=== PATIENT | female | born 1940 | race Caucasian/White ===

== ENCOUNTER 2017-04-22 09:18 | Day surgery (SDC) | payer MEDICARE, BC ==
[2017-04-21 09:30] VITALS: BMI 21.1
[~2017-04-22 09:18] MED LIST: LACTATED RINGERS 1,000 ML IV SCH
[2017-04-22 10:20] VITALS: TEMP 97.5
[2017-04-22] MEDS ORDERED: LIDOCAINE 1% 20 ML VIAL (10MG/ML) FOR IV START INTRADERMA ONE (10:28)
[2017-04-22] MEDS ORDERED: ONDANSETRON 4 MG/2 ML VIAL IVP ONE (10:33)
[2017-04-22] MEDS ORDERED: PROPOFOL 10 MG/ML 20 ML VIAL IV ONE (10:53)
--- NOTE | 2017-04-22 11:04 | P.PCN ---
Date of Procedure: 04/22/17 Procedure(s) Performed: BRIEF HISTORY: Patient is a 76-year-old, pleasant, female, scheduled for an upper endoscopy as a part of evaluation of epigastric pain for the last several months duration. She was treated with proton pump inhibitors with no help. Recently she was started on Carafate 1 g 4 times daily but developed severe constipation.. She was noted to have positive serology for H. pylori and was treated with antibiotics for 2 weeks. The symptoms continue to progressively get worse and hence she is scheduled for an upper endoscopy to evaluate further. Recent CT of the abdomen and pelvis showed thickening in the pyloric area. PROCEDURE PERFORMED: Esophagogastroduodenoscopy with biopsy. PREOPERATIVE DIAGNOSIS: Persistent epigastric pain. IV sedation per anesthesia. PROCEDURE: After informed consent was obtained, the patient was brought into the endoscopy unit. IV sedation was administered by Anesthesia under continuous monitoring. Initially the Olympus GIF-140 video endoscope was inserted into the mouth. Esophagus intubated without any difficulty. It was gradually advanced into the stomach and duodenum and carefully examined. The bulb and the second part of the duodenum appeared normal. The scope at this time was withdrawn to the stomach, adequately insufflated with air, and upon careful examination, mucosa of the antrum, had patchy areas of erythema and biopsies were done from this area. The body, cardia and the fundus appeared normal. The scope was then withdrawn into the esophagus. Small sliding Hiatal hernia noted. The GE junction was located at 39 cm from the incisors. The esophagus appeared normal. There were no erosions or ulcerations seen, biopsies were done from the distal esophagus and the patient tolerated the procedure well. IMPRESSION: 1. Minimal antral gastritis. 2. Small sliding Hiatal hernia. RECOMMENDATIONS: The findings of this examination were discussed with the patient as well as a family. She was advised to follow with the biopsy results. She can stop the Carafate because of constipation. She will continue with MiraLAX on a daily basis. She will be seen in office in 2-3 weeks.
[2017-04-22 11:29] VITALS: RESP 18
[2017-04-22 11:32] VITALS: BP 133/68; PULSE 78
== END 2017-04-22 11:41 | disposition home or self-care (01) ==
LOC: ORWHC2ENDO 09:18
PROVIDERS: ATTEND Internal Medicine Gastroenterology
DX: K29.50 Unspecified chronic gastritis without bleeding (principal); K44.9 Diaphragmatic hernia without obstruction or gangrene; T47.1X5A Adverse effect of other antacids and anti-gastric-secretion drugs, initial encounter; K59.00 Constipation, unspecified; K21.0 Gastro-esophageal reflux disease with esophagitis; Z87.891 Personal history of nicotine dependence; Z79.899 Other long term (current) drug therapy; Z90.49 Acquired absence of other specified parts of digestive tract; Z86.19 Personal history of other infectious and parasitic diseases
CPT/HCPCS: 88305; 43239; J2405; J2704

== ENCOUNTER → 2017-05-26 | Outpatient (CLI) | payer MEDICARE, BC ==
--- NOTE | 2017-05-26 15:39 | NM ---
EXAMINATION TYPE: NM hepatobiliary w CCK DATE OF EXAM: 05/26/2017 COMPARISON: NONE HISTORY: Chronic cholecystitis and biliary dyskinesia per order. Epigastric pain with diminished appe tite and nausea per patient. TECHNIQUE: After the intravenous administration of 5.2 mCi Tc 99m Mebrofenin hepatobiliary scintigrap hy is performed. Immediate images post injection. FINDINGS: There is satisfactory initial accumulation of tracer by the liver. The gallbladder is visualized wit hin 20 minutes. The small bowel activity is noted within 50 minutes. At one hour CCK was administer ed, patient was injected with 0.9 mcg of Kinevac, and gallbladder ejection fraction is calculated at 8 %, diminished from the normal range. Therefore there is no scintigraphic evidence of cystic or common bile duct obstruction to suggest acute cholecystitis. Diminished ejection fraction is consiste nt with chronic cholecystitis or gallbladder dyskinesia. IMPRESSION: Ejection fraction is 8%, diminished from the normal range, scintigraphic are consistent w ith gallbladder dyskinesia.
== END | disposition home or self-care (01) ==
LOC: RADNMMAIN 12:58
PROVIDERS: ATTEND Surgery
DX: K82.8 Other specified diseases of gallbladder (principal)
CPT/HCPCS: 78227; A9537; J2805

== ENCOUNTER 2017-06-08 06:44 | Day surgery (SDC) | payer MEDICARE, BC ==
[2017-06-03 14:34] VITALS: BMI 19.6
[~2017-06-08 06:44] MED LIST changes: +DEXAMETHASONE SOD PHOSPHATE 10 MG/ML 1 ML VIAL IV ONE; +HEPARIN SODIUM,PORCINE 5,000 UNIT/ML 1 ML VIAL SQ ONE; +MORPHINE SULFATE 4 MG/0.8 ML SYRINGE (INJ) IV PRN; +ONDANSETRON ODT 4 MG TAB PO ONE; +ceFAZolin IN SWFI 2 GM/20 ML SYRINGE IVP ONE
[2017-06-08] MEDS ORDERED: MIDAZOLAM 2 MG/2 ML VIAL IV ONE (07:05)
[2017-06-08] MEDS ORDERED: LIDOCAINE 1% 20 ML VIAL (10MG/ML) FOR IV START INTRADERMA ONE (07:35)
[2017-06-08] MEDS ORDERED: ONDANSETRON 4 MG/2 ML VIAL IVP ONE (07:35)
--- NOTE | 2017-06-08 07:50 | P.GSHP ---
History of Present Illness H&P Date: 06/08/17 Chief Complaint: Right upper quadrant pain This a 76-year-old female who's had complaints of right quadrant pain and nausea. Her recent HIDA scan shows abnormal ejection fraction consistent with chronic cholecystitis. Past Medical History Past Medical History: GERD/Reflux, Osteoarthritis (OA) Additional Past Medical History / Comment(s): RECENT ABD. PAIN WITH N/V, vomiting resolved at present. HX BOWEL OBSTRUCTIONS X4, had an ilieus with one of the bowel obstructions. History of Any Multi-Drug Resistant Organisms: None Reported Past Surgical History: Appendectomy, Bowel Resection, Hysterectomy Additional Past Surgical History / Comment(s): COLONOSCOPY, breast biopsies, negative. Past Anesthesia/Blood Transfusion Reactions: No Reported Reaction Past Psychological History: Anxiety Smoking Status: Former smoker Past Alcohol Use History: Rare Additional Past Alcohol Use History / Comment(s): QUIT SMOKING in 1957. Past Drug Use History: None Reported - Past Family History Mother Family Medical History: Deep Vein Thrombosis (DVT) Brother(s) Family Medical History: Cancer Additional Family Medical History / Comment(s): Rectal cancer Medications and Allergies Home Medications Medication Instructions Recorded Confirmed Type Docusate [Colace] 100 mg PO DAILY 04/21/17 06/03/17 History L.acidoph,Paracasei, B.lactis 1 each PO DAILY 04/21/17 06/03/17 History [Probiotic] LORazepam [Ativan] 0.5 mg PO TID 04/21/17 06/03/17 History Ondansetron HCl [Zofran] 8 mg PO TID 06/03/17 06/03/17 History Polyethylene Glycol 3350 [Miralax] 8.5 gm PO BID 06/03/17 06/03/17 History Ranitidine HCl [Zantac] 75 mg PO BID 06/03/17 06/03/17 History Allergies Allergy/AdvReac Type Severity Reaction Status Date / Time No Known Allergies Allergy Verified 06/03/17 14:17 Surgical - Exam Vital Signs Temp Pulse Resp BP Pulse Ox 98.4 F 91 16 155/73 96 06/08/17 07:34 06/08/17 07:34 06/08/17 07:34 06/08/17 07:34 06/08/17 07:34 - General well developed, no distress - Eyes PERRL - ENT normal pinna - Neck no masses - Respiratory normal expansion - Cardiovascular Rhythm: regular - Abdomen Abdomen: soft, non tender Assessment and Plan Assessment: Chronic cholecystitis Abnormal HIDA scan We'll perform laparoscopic cholecystectomy
[2017-06-08] MEDS ORDERED: SUCCINYLCHOLINE CHLORIDE 100 MG/5 ML SYR IV ONE (07:54)
[2017-06-08] MEDS ORDERED: fentaNYL (PF) 50 MCG/ML 2 ML AMP ONE (07:54)
[2017-06-08] MEDS ORDERED: GLYCOPYRROLATE 0.2 MG/ML 2 ML VIAL ONE (07:54)
[2017-06-08] MEDS ORDERED: NEOSTIGMINE 1 MG/ML 10 ML VIAL ONE (07:54)
[2017-06-08] MEDS ORDERED: LIDOCAINE 1% INJ 10MG/ML (20 ML MDV) ONE (07:54)
[2017-06-08] MEDS ORDERED: PROPOFOL 10 MG/ML 20 ML VIAL IV ONE (07:54)
[2017-06-08] MEDS ORDERED: ROCURONIUM BROMIDE 10 MG/ML 10 ML VIAL IV ONE (07:54)
[2017-06-08] MEDS ORDERED: BUPIVACAINE (PF) 0.25% 30 ML VIAL SQ ONE (08:16)
[2017-06-08 08:59] VITALS: TEMP 97.6
--- NOTE | 2017-06-08 09:21 | P.OP ---
Date of Procedure: 06/08/17 Preoperative Diagnosis: Chronic cholecystitis Postoperative Diagnosis: Chronic cholecystitis Procedure(s) Performed: Laparoscopic cholecystectomy Anesthesia: CELSO Surgeon: Nader Richey Estimated Blood Loss (ml): 5 Pathology: other (Gallbladder) Condition: stable Disposition: PACU Description of Procedure: The patient was placed on the operating table. The patient received a general endotracheal tube anesthesia. The patients abdomen was prepped and draped in the usual sterile fashion. Through an infraumbilical stab incision, the fascia of the anterior abdominal wall was grasped with a pair of Kochers and then the Veress needle was placed in the peritoneal cavity. Position of the Veress needle was confirmed with positive drop test. The abdomen was then insufflated. After adequate insufflation, the 10 mm trocar was placed in the peritoneal cavity. Following this the laparoscope was placed in the peritoneal cavity. The patient was placed in the head-up, right side up position and then a 5 mm trocar was placed in the right lateral and right subcostal position under direct visualization. A 8 mm trocar was placed in the epigastric position. The gallbladder was grasped in the fundus and infundibulum. Traction on the gallbladder was placed in the lateral and the cephalad positions. The triangle of Calot was visualized.. The cystic duct was bluntly dissected until the union of the cystic duct and common bile duct was seen. The cystic duct was then divided and sealed with the Harmonic scissors. A PDS Endoloop was then placed throughout the cystic duct stump. The cystic artery divided and sealed with the Harmonic scissors. The gallbladder was then removed from the liver bed using Harmonic scissors. The gallbladder was then extracted through the epigastric port site. Operative field was checked for any bleeding spots and Harmonic scissors was used to coagulate the liver bed. The abdomen was irrigated. The trocars were removed. The skin was closed using interrupted 3-0 Vicryl suture. Dermabond dressing were applied. The patient tolerated the procedure well.
[2017-06-08] MEDS ORDERED: PROMETHAZINE INJ 25 MG/ML 1 ML VIAL IVPB ONE (09:50)
[2017-06-08] MEDS ORDERED: HYDROcodone/APAP 7.5-325MG 1 EACH TAB PO ONE (11:59)
[2017-06-08 12:44] VITALS: BP 118/57; PULSE 91; RESP 18
== END 2017-06-08 12:51 | disposition home or self-care (01) ==
LOC: OR 06:44
PROVIDERS: ATTEND Surgery
DX: K80.10 Calculus of gallbladder with chronic cholecystitis without obstruction (principal); K21.9 Gastro-esophageal reflux disease without esophagitis; M19.90 Unspecified osteoarthritis, unspecified site; Z87.891 Personal history of nicotine dependence; Z87.19 Personal history of other diseases of the digestive system; Z90.49 Acquired absence of other specified parts of digestive tract; Z79.899 Other long term (current) drug therapy
CPT/HCPCS: 88304; 47562; J2250; J1100; J2550; J2710; J2405; J2001; J3010; J0330; J2704; J0690

== ENCOUNTER → 2018-01-05 | Outpatient (CLI) | payer MEDICARE, BC ==
[2018-01-05 10:31] LABS: Blood Urea Nitrogen 13 mg/dL (7-17)
--- NOTE | 2018-01-06 11:04 | CT ---
EXAMINATION TYPE: CT Enterography DATE OF EXAM: 01/05/2018 COMPARISON: None HISTORY: 77-year-old female abnormal Weight loss without effort. History of multiple bowel surgeries . TECHNIQUE: Contiguous axial scanning of the abdomen and pelvis performed with IV Contrast, patient in jected with 100 mL of Isovue 370. Negative contrast agent was also administered for small bowel diste ntion for CT enterography protocol. Both arterial and portal venous phase imaging was performed. Frank nal/sagittal reconstructions performed. 3-D reconstructions generated on a dedicated independent work station. CT DLP: 427 mGycm Automated exposure control for dose reduction was used. FINDINGS: Heart normal size without pericardial effusion. Strandy atelectasis at the left base without pleural effusion. 2.1 cm cyst left hepatic dome. Otherwise, no focal liver lesion. Bile duct measures 6 mm and shows no rmal distal tapering. Patient status post cholecystectomy. Portal venous system is patent. Adrenal glands, kidneys, spleen, and pancreas appear within normal limits. There is mild focal narrow ing at the origin of the SMA without significant atherosclerotic change or abnormal angulation of the celiac axis. There is mild right-sided pelvicaliectasis but with symmetric uptake and enhancement of the kidneys, likely transient along with an extrarenal pelvis. The right ureter has normal caliber. There is a staple line along the right lower quadrant with fluid distended bowel loop in this region. There is extensive clumping of bowel loops at this level making. Difficult to follow leading to and from this dilated portion. Dilatation measures up to 5.1 cm. Portions of the distal ileum show complete collapse while other short segments show partial fluid dis tention. Addition, there is prominent tortuosity of some of the distal ileum in the right lower quadr ant adjacent to the suture as well, for example, refer to coronal image 47-49. No abnormal bowel wall thickening or mucosal hyperemia. A couple prominent right lower quadrant mesen teric lymph nodes measure up to 6 mm. Fluid extends into the right side of the colon. Left-sided colon shows scattered mild to moderate sto ol. Bladder is urine distended. Patient status post hysterectomy. Neither ovary is clearly visualized. Multiple surgical clips in the right lower quadrant. No abnormal fluid collection the pelvis or pelvi c lymphadenopathy seen. Bones: Mild degenerative changes at the hips. Additional degenerative changes throughout the lumbar s pine with grade 1 anterolisthesis at L4-L5. IMPRESSION: 1. PRIOR BOWEL RESECTION AND RE-ANASTOMOSIS WITH A STAPLE LINE IN THE RIGHT LOWER QUADRANT. EXTENSIVE CLUSTERED BOWEL LOOPS ARE PRESENT HERE MAKING IT DIFFICULT TO FOLLOW THE SMALL BOWEL. 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 2. SOME OF THE NEGATIVE ORAL CONTRAST REACHES THE RIGHT SIDE OF THE COLON. HOWEVER, THERE IS PROMINEN T TORTUOSITY AND SEGMENTAL AREAS OF NARROWING OF THE DISTAL ILEUM. PARTIAL OBSTRUCTION SECONDARY TO A DHESIONS DIFFICULT TO EXCLUDE. 3. NO EVIDENCE FOR INFLAMMATORY ENTERITIS.
== END | disposition home or self-care (01) ==
LOC: RADCTMAIN 09:46
PROVIDERS: ATTEND Internal Medicine
DX: K56.699 Other intestinal obstruction unspecified as to partial versus complete obstruction (principal); R10.13 Epigastric pain; R14.2 Eructation; K66.0 Peritoneal adhesions (postprocedural) (postinfection); R10.9 Unspecified abdominal pain
CPT/HCPCS: 82565; 84520; 74177; 36415; Q9967

== ENCOUNTER 2021-07-13 12:23 | Inpatient (IN) | payer MEDICARE, BC ==
[2021-07-13] MEDS ORDERED: ONDANSETRON 4 MG/2 ML VIAL IVP PRN (16:20)
[2021-07-13] MEDS ORDERED: MORPHINE SULFATE 4 MG/ML SYRINGE IVP PRN (16:21)
[2021-07-13 16:46] LABS: Glucose,Whole Blood 89 mg/dL (75-99)
--- NOTE | 2021-07-13 17:06 | XR ---
EXAMINATION TYPE: XR chest 1V portable DATE OF EXAM: 07/13/2021 COMPARISON: NONE HISTORY: NG tube placement TECHNIQUE: Single view FINDINGS: Heart is normal. There is some pleural reaction and blunting left costophrenic angle. There are no hilar masses. No heart failure. There is a nasogastric tube in the body of the stomach. Trach ea is midline. IMPRESSION: NG tube is in the stomach. Mild pleural reaction at the left lung base.
--- NOTE | 2021-07-13 18:03 | CONS ---
CONSULTATION REASON FOR CONSULTATION: Advice regarding DJD and other multiple medical issues, requested by Dr. Garcia. HISTORY OF PRESENT ILLNESS: This 80-year-old woman with a past medical history of DJD and GERD, being followed by Dr. Fleming in the outpatient setting, had previously ileus and gallbladder surgery as well. The patient is complaining of abdominal pain and distention. Patient was seen elsewhere. NG tube inserted and abdominal distention improved. Pain is slightly better. Patient is being closely monitored at this time. There is no history of any fever, rigor or chills at this time. PAST MEDICAL HISTORY: History of DJD, history of GERD. HOME MEDICATIONS: Amantadine, MiraLAX, Zofran, Ativan, probiotic. Doses and the rest of the medications are reviewed. ALLERGIES: NONE. FAMILY HISTORY: History of DVT, rectal cancer. SOCIAL HISTORY: Quit smoking in 1957. REVIEW OF SYSTEMS: Fourteen-point review of systems negative except as mentioned earlier. PHYSICAL EXAMINATION: Pulse 77, blood pressure 150/84, respiration 18. HEENT: Conjunctivae normal. NECK: No jugular venous distention. CARDIOVASCULAR: S1, S2 muffled. RESPIRATION: Breath sounds diminished at the bases. A few rhonchi. No crackles. ABDOMEN: Soft. Mild distention. Otherwise, nontender. No mass palpable. Bowel sounds diminished. NG tube in situ. LEGS: No edema. No swelling. NERVOUS SYSTEM: Higher functions as mentioned earlier. No focal deficit. SKIN: No ulcer, rash, bleeding. JOINTS: No active deforming arthropathy. LABS: Current labs are not available. ASSESSMENT: 1. Bowel obstruction possible; rule out ileus. 2. History of previous ileus. 3. History of cholecystectomy. 4. History of degenerative joint disease. 5. History of previous bowel obstructions. 6. History of bowel resection. 7. History of appendectomy. 8. History of anxiety. RECOMMENDATIONS AND DISCUSSION: In this 80-year-old woman who presented with multiple complex medical issues, we will monitor the patient closely. NG tube. DVT prophylaxis. Incentive spirometry. Otherwise, proton pump inhibitors. Pain management. I would also recommend repeat labs in the morning and resume the home medications once they are confirmed. Will follow the patient closely with Surgery. Further recommendations to follow. MMODL / IJN: [id number] /
[2021-07-13] MEDS: ACETAMINOPHEN IV (For NPO) 1,000 MG in EMPTY BAG 1 BAG IVPB PRN (18:12)
[2021-07-13] MEDS: D5-0.45% NACL WITH KCL 20MEQ/L 1,000 ML IV SCH (21:41)
[2021-07-13] MEDS: FAMOTIDINE 20 MG/2 ML VIAL IV SCH (21:41)
[2021-07-14] MEDS: HEPARIN SODIUM,PORCINE/PF 5,000 UNIT/0.5 ML SYRINGE SQ SCH ×4 (00:55→23:35)
[2021-07-14] MEDS: D5-0.45% NACL WITH KCL 20MEQ/L 1,000 ML IV SCH ×3 (04:04→20:00)
[2021-07-14 07:15] LABS: Glucose,Whole Blood 99 mg/dL (75-99)
[2021-07-14] MEDS: ACETAMINOPHEN IV (For NPO) 1,000 MG in EMPTY BAG 1 BAG IVPB PRN ×3 (09:00→23:37)
[2021-07-14] MEDS: FAMOTIDINE 20 MG/2 ML VIAL IV SCH ×2 (09:00→20:00)
[2021-07-14 10:34] LABS: Basophils # (A) 0.04 X 10*3/uL (0.00-0.10); Basophils % (A) 0.3 %; Eosinophils # (A) 0.17 X 10*3/uL (0.04-0.35); Eosinophils % (A) 1.5 %; HCT 37.3 % (37.2-46.3); HGB 12.3 g/dL (12.0-15.0); Immature Grans, Automated 0.4 %; Lymphocytes # (A) 1.71 X 10*3/uL (0.90-5.00); Lymphocytes % (A) 14.8 %; MCH 31.8 pg (27.0-32.0); MCV 96.4 fL (80.0-97.0); Mean Platelet Volume 9.9 fL (9.5-12.2); Monocytes # (A) 1.07 X 10*3/uL (0.20-1.00); Monocytes % (A) 9.2 %; NRBC Per 100 WBC 0 /100 WBCS (0.0-0.0); Neutrophils # (A) 8.55 X 10*3/uL (1.80-7.70); Neutrophils % (A) 73.8 %; Platelet Count 288 X 10*3/uL (140-440); RBC 3.87 X 10*6/uL (4.10-5.20); RDW 13.3 % (11.5-14.5); WBC 11.59 X 10*3/uL (4.50-10.00)
[2021-07-14 10:55] LABS: African American GFR (CKD) 100.5 (60.0-200.0); Albumin 3.7 g/dL (3.8-4.9); Albumin/Globulin Ratio 1.76 (1.60-3.17); Anion Gap 8.1 mmol/L (10.00-18.00); BUN/Creat Ratio 8.17 Ratio (12.00-20.00); Blood Urea Nitrogen 4.9 mg/dL (9.0-27.0); Calcium 8.8 mg/dL (8.7-10.3); Carbon Dioxide 22.9 mmol/L (20.0-27.5); Globulin 2.1 g/dL (1.6-3.3); Non-African American GFR(CKD) 86.7 (60.0-200.0); Potassium 4.2 mmol/L (3.5-5.5); Total Bilirubin 0.3 mg/dL (0.30-1.20); Total Protein 5.8 g/dL (6.2-8.2)
[2021-07-14 11:36] LABS: Glucose,Whole Blood 115 mg/dL (75-99)
--- NOTE | 2021-07-14 11:53 | P.GSHP ---
History of Present Illness H&P Date: 07/14/21 Chief Complaint: Small bowel obstruction 80-year-old female transferred from [facility] yesterday because of small bowel obstruction. She apparently was there for a few days with nasogastric tube to suction since evening. There was no improvement and therefore she was advised to be transferred by the surgical services there. Patient has had multiple bowel obstructions in the past. She has required laparotomy on at least 2 occasions. She has had several episodes that spontaneously improved with gastric decompression. Patient denies pain currently. No bowel movement since . Small amount of flatus. White blood cell count slightly elevated. She is afebrile. - Review of Systems Comment: The patient denies any acute changes in vision or hearing, no dysphagia or odynophagia, no chest pain or shortness of breath, no dysuria or hematuria, no headache, no runny nose, no rectal bleeding or melena, no unexplained weight loss Past Medical History Past Medical History: GERD/Reflux, Osteoarthritis (OA) Additional Past Medical History / Comment(s): RECENT ABD. PAIN WITH N/V, vomiting resolved at present. HX BOWEL OBSTRUCTIONS X4, had an ileus with one of the bowel obstructions. History of Any Multi-Drug Resistant Organisms: None Reported Past Surgical History: Appendectomy, Bowel Resection, Hysterectomy Additional Past Surgical History / Comment(s): COLONOSCOPY, breast biopsies, negative. Past Anesthesia/Blood Transfusion Reactions: No Reported Reaction Past Psychological History: Anxiety Smoking Status: Former smoker Past Alcohol Use History: Rare Additional Past Alcohol Use History / Comment(s): QUIT SMOKING in 1957. Past Drug Use History: None Reported - Past Family History Mother Family Medical History: Deep Vein Thrombosis (DVT) Brother(s) Family Medical History: Cancer Additional Family Medical History / Comment(s): Rectal cancer Medications and Allergies Home Medications Medication Instructions Recorded Confirmed Type LORazepam [Ativan] 0.25 mg PO BID PRN 04/21/17 07/13/21 History Clobetasol Propionate [Temovate 1 applic TOPICAL DIRECTED PRN 07/13/21 07/13/21 History 0.05% Cream] Famotidine [Pepcid] 20 mg PO BID 07/13/21 07/13/21 History Immune Supplement 1 cap PO DAILY 07/13/21 07/13/21 History Multivit-Min/Iron/Folic/Lutein 1 tab PO DAILY 07/13/21 07/13/21 History [Centrum Silver Women Tablet] PARoxetine [Paxil] 20 mg PO DAILY 07/13/21 07/13/21 History Sennosides/Docusate Sodium [Senna 1 cap PO DAILY 07/13/21 07/13/21 History Plus 8.6-50 mg Softgel] Allergies Allergy/AdvReac Type Severity Reaction Status Date / Time No Known Allergies Allergy Verified 07/13/21 16:43 Surgical - Exam Vital Signs Temp Pulse Resp BP Pulse Ox 98.5 F 77 18 152/84 96 07/13/21 15:35 07/13/21 15:35 07/13/21 15:35 07/13/21 15:35 07/13/21 15:35 Physical exam: General: Well-developed, well-nourished HEENT: Normocephalic, sclerae nonicteric Abdomen: Nontender, mild distention Extremities: No edema Neuro: Alert and oriented Results - Labs 07/14/21 05:11 07/14/21 05:11 Abnormal Lab Results - Last 24 Hours (Table) 07/14/21 07/14/21 07/14/21 Range/Units 05:11 05:11 11:34 WBC 11.59 H (4.50-10.00) X 10*3/uL RBC 3.87 L (4.10-5.20) X 10*6/uL Immature Gran # 0.05 H (0.00-0.04) X 10*3/uL Neutrophils # 8.55 H (1.80-7.70) X 10*3/uL Monocytes # 1.07 H (0.20-1.00) X 10*3/uL Anion Gap 8.10 L (10.00-18.00) mmol/L BUN 4.9 L (9.0-27.0) mg/dL BUN/Creatinine Ratio 8.17 L (12.00-20.00) Ratio POC Glucose (mg/dL) 115 H (75-99) mg/dL Total Protein 5.8 L (6.2-8.2) g/dL Albumin 3.7 L (3.8-4.9) g/dL Diabetes panel 07/14/21 Range/Units 05:11 Sodium 138 (135-145) mmol/L Potassium 4.2 (3.5-5.5) mmol/L Chloride 107 (96-109) mmol/L Carbon Dioxide 22.9 (20.0-27.5) mmol/L BUN 4.9 L (9.0-27.0) mg/dL Creatinine 0.6 (0.6-1.5) mg/dL Glucose 104 (70-110) mg/dL Calcium 8.8 (8.7-10.3) mg/dL AST 25 (13-35) U/L ALT 21 (8-44) U/L Alkaline Phosphatase 65 (41-126) U/L Total Protein 5.8 L (6.2-8.2) g/dL Albumin 3.7 L (3.8-4.9) g/dL Calcium panel 07/14/21 Range/Units 05:11 Calcium 8.8 (8.7-10.3) mg/dL Albumin 3.7 L (3.8-4.9) g/dL Pituitary panel 07/14/21 Range/Units 05:11 Sodium 138 (135-145) mmol/L Potassium 4.2 (3.5-5.5) mmol/L Chloride 107 (96-109) mmol/L Carbon Dioxide 22.9 (20.0-27.5) mmol/L BUN 4.9 L (9.0-27.0) mg/dL Creatinine 0.6 (0.6-1.5) mg/dL Glucose 104 (70-110) mg/dL Calcium 8.8 (8.7-10.3) mg/dL Adrenal panel 07/14/21 Range/Units 05:11 Sodium 138 (135-145) mmol/L Potassium 4.2 (3.5-5.5) mmol/L Chloride 107 (96-109) mmol/L Carbon Dioxide 22.9 (20.0-27.5) mmol/L BUN 4.9 L (9.0-27.0) mg/dL Creatinine 0.6 (0.6-1.5) mg/dL Glucose 104 (70-110) mg/dL Calcium 8.8 (8.7-10.3) mg/dL Total Bilirubin 0.30 (0.30-1.20) mg/dL AST 25 (13-35) U/L ALT 21 (8-44) U/L Alkaline Phosphatase 65 (41-126) U/L Total Protein 5.8 L (6.2-8.2) g/dL Albumin 3.7 L (3.8-4.9) g/dL Assessment and Plan (1) Small bowel obstruction Narrative/Plan: 80-year-old female with small bowel obstruction. Patient with history of bowel obstruction from adhesions in the past. She has been told she has significant adhesions. Continue conservative management for now. Will check small bowel follow-through with Gastrografin tomorrow. Continue gastric decompression. Appreciate hospitalist consult. Current Visit: Yes Status: Acute Code(s): K56.609 - UNSP INTESTNL OBST, UNSP TO PARTIAL VERSUS COMPLETE OBST SNOMED Code(s): 967443438
--- NOTE | 2021-07-14 15:18 | PN ---
PROGRESS NOTE DATE OF SERVICE: 07/14/2021 This 80-year-old woman was admitted with bowel obstruction and NG tube. The patient had previous recurrent bowel obstruction and ileus also. Surgery is following the patient closely. Dr. Garcia is pursuing conservative line of management. Small bowel follow-through with Gastrografin is being planned tomorrow. No chest pain. No palpitation. PHYSICAL EXAMINATION: Pulse is 94, blood pressure 134/84. Respirations 18. HEENT: Conjunctivae normal. Neck: No JVD. Cardiovascular: S1, S2 muffled. Respirations: Breath sounds diminished in the bases. Abdomen: Soft. Mild diffuse distention. Legs are no edema. No swelling. Nervous system: No focal deficits. NG tube in present. LABS: Reviewed. ASSESSMENT: 1. Acute bowel obstruction. Rule out ileus on NG tube. 2. History of previous ileus. 3. History of cholecystectomy. 4. History of degenerative joint disease. 5. History of previous bowel obstruction. 6. History of bowel resection. 7. History of appendectomy. 8. History of anxiety. RECOMMENDATIONS AND DISCUSSION: I recommend to continue current medications, management and symptomatic treatment. Otherwise, repeat labs and closely monitor and closely follow with surgery. Further recommendations to follow. MMODL / IJN: [id number] /
[2021-07-15] MEDS: HEPARIN SODIUM,PORCINE/PF 5,000 UNIT/0.5 ML SYRINGE SQ SCH ×3 (06:55→23:25)
[2021-07-15] MEDS: FAMOTIDINE 20 MG/2 ML VIAL IV SCH ×2 (08:03→20:42)
[2021-07-15] MEDS: ACETAMINOPHEN IV (For NPO) 1,000 MG in EMPTY BAG 1 BAG IVPB PRN (08:03)
[2021-07-15 08:46] LABS: Basophils # (A) 0.04 X 10*3/uL (0.00-0.10); Basophils % (A) 0.4 %; Eosinophils # (A) 0.26 X 10*3/uL (0.04-0.35); Eosinophils % (A) 2.5 %; HCT 37.7 % (37.2-46.3); HGB 12.4 g/dL (12.0-15.0); Immature Grans, Automated 0.4 %; Lymphocytes # (A) 1.89 X 10*3/uL (0.90-5.00); Lymphocytes % (A) 18.3 %; MCH 31.3 pg (27.0-32.0); MCHC 32.9 g/dL (32.0-37.0); MCV 95.2 fL (80.0-97.0); Mean Platelet Volume 9.7 fL (9.5-12.2); Monocytes # (A) 0.83 X 10*3/uL (0.20-1.00); NRBC Per 100 WBC 0 /100 WBCS (0.0-0.0); Neutrophils # (A) 7.28 X 10*3/uL (1.80-7.70); Neutrophils % (A) 70.4 %; Platelet Count 297 X 10*3/uL (140-440); RBC 3.96 X 10*6/uL (4.10-5.20); RDW 13.3 % (11.5-14.5); WBC 10.34 X 10*3/uL (4.50-10.00)
[2021-07-15 08:59] LABS: African American GFR (CKD) 104.4 (60.0-200.0); Anion Gap 10.1 mmol/L (10.00-18.00); BUN/Creat Ratio 9.21 Ratio (12.00-20.00); Blood Urea Nitrogen 4.9 mg/dL (9.0-27.0); Calcium 8.8 mg/dL (8.7-10.3); Carbon Dioxide 20.4 mmol/L (20.0-27.5); Non-African American GFR(CKD) 90.1 (60.0-200.0); Potassium 4.2 mmol/L (3.5-5.5)
[2021-07-15] MEDS: D5-0.45% NACL WITH KCL 20MEQ/L 1,000 ML IV SCH ×2 (09:57→20:42)
[2021-07-15] MEDS ORDERED: BENZOCAINE SPRAY 1 CAN MUCOUS MEM PRN (11:44)
--- NOTE | 2021-07-15 11:49 | P.PN ---
Subjective Progress Note Date: 07/15/21 CHIEF COMPLAINT: Small bowel obstruction HISTORY OF PRESENT ILLNESS: Patient did have a soft small bowel movement last night. She had a small amount of flatus. NG tube with a heart and 50 mL dark brown output this morning. She denies any nausea. Denies any abdominal pain. She underwent a small bowel follow-through with Gastrografin this morning results are pending. Patient complaining of throat irritation from the NG tube. Afebrile. WBC 11.59 down to 10.34 PHYSICAL EXAM: VITAL SIGNS: Reviewed. GENERAL: Well-developed in no acute distress. HEENT: No sclera icterus. Extraocular movements grossly intact. Moist buccal mucosa. Head is atraumatic, normocephalic. ABDOMEN: Soft. Nondistended. Nontender. NEUROLOGIC: Alert and oriented. Cranial nerves II through XII grossly intact. ASSESSMENT: 1. Small bowel obstruction PLAN: -Follow up on the small bowel follow-through results -Keep NG tube in place for now -Further recommendations forthcoming per surgeon -Add Hurricaine spray for throat irritation -Keep patient nothing by mouth -Continue IV fluids Physician Historic Sites Registrar note has been reviewed by physician. Signing provider agrees with the documented findings, assessment, and plan of care. I have personally seen and examined the patient, reviewed the DOORKEEPER /PAs history, exam and MDM and agree with the assessment and plan as written. Based on total visit time, I have performed more than 50% of the visit. As above: Patient doing well today. She did have a bowel movement and nasogastric tube came out accidentally. Small bowel series thankfully does not show any evidence of obstruction at this time. Begin advancing diet as tolerated. Anticipate discharge tomorrow morning. Objective - Vital Signs Vital signs: Vital Signs Temp 98.3 F 07/15/21 02:00 Pulse 82 07/15/21 02:00 Resp 16 07/15/21 02:00 BP 118/66 07/15/21 02:00 Pulse Ox 96 07/15/21 02:00 FiO2 Intake & Output 07/14/21 07/15/21 07/15/21 18:59 06:59 18:59 Intake Total 1300 300 Output Total 210 150 Balance 1090 150 Intake: Intake, IV Titration 1300 300 Amount ACETAMINOPHEN IV (For NPO 100 ) 1,000 mg In Empty Bag 1 bag @ 400 mls/hr IVPB Q6HR PRN Rx#:[id number] ACETAMINOPHEN IV (For NPO 200 ) 1,000 mg In Empty Bag 1 bag @ 400 mls/hr IVPB Q6HR PRN Rx#:[id number] D5-0.45% NaCl with KCl 1100 200 20Meq/l 1,000 ml @ 100 mls/hr IV .Q10H STORM Rx#: [id number] Output: Gastric Drainage 210 150 Other: Voiding Method Toilet # Voids 1 4 # Bowel Movements 0 - Labs CBC & Chem 7: 07/15/21 04:16 07/15/21 04:16 Labs: Abnormal Lab Results - Last 24 Hours (Table) 07/15/21 07/15/21 Range/Units 04:16 04:16 WBC 10.34 H (4.50-10.00) X 10*3/uL RBC 3.96 L (4.10-5.20) X 10*6/uL BUN 4.9 L (9.0-27.0) mg/dL Creatinine 0.5 L (0.6-1.5) mg/dL BUN/Creatinine Ratio 9.21 L (12.00-20.00) Ratio
[2021-07-15] MEDS ORDERED: LORazepam 0.5 MG TAB PO PRN (17:20)
[2021-07-15] MEDS ORDERED: ACETAMINOPHEN TAB 325 MG TAB PO PRN (17:21)
--- NOTE | 2021-07-15 19:27 | FL ---
EXAMINATION: Small bowel follow through DATE: 07/15/2021 CLINICAL INDICATION: 80-year-old female possible small bowel obstruction, history of multiple prior b owel obstructions and multiple surgeries. COMPARISON: Outside CT 07/12/2021 Total Fluoroscopy Time: 22 seconds 15 images obtained. FINDINGS: Following administration of barium, serial films were carried out to 1 hour 30 minutes. Barium is see n to reach the colon. Loops of jejunum and ileum are compressed and examined under fluoroscopy. The s mall bowel loops have a normal-caliber. Some residual mildly distended small bowel loops are present in the right side of the abdomen measuring up to 3.1 cm likely a product of recent obstruction. Mucos al pattern is within normal limits. No intrinsic or extrinsic process is suspected. IMPRESSION: Normal small bowel transit time of 1 hour 30 minutes. Findings suggest resolution of small bowel obst ruction. Some residual mildly distended small bowel loops measuring up to 3.1 cm likely a product of recent obstruction
--- NOTE | 2021-07-15 22:15 | P.PN ---
Subjective Progress Note Date: 07/15/21 This is a 80 year old female who presents to the hospital with concern for bowel obstruction. Currently had NG tube in place this morning. Underwent small bowel follow through today showing normal small bowel transit time which suggest resolution of small bowel obstruction with residual mild distention. After barium study patient had multiple episodes of loose stool. Denies nausea, vomiting. Labs today showing white count 10.34, electrolytes within normal limit. Afebrile, blood pressure 120/63, 97% room air. Review of Systems Constitutional: Denied any fatigue denied any fever. Cardio vascular: denied any chest pain, palpitations Gastrointestinal: denied any nausea, vomiting, diarrhea, reports loose stool, passing gas Pulmonary: Denied any shortness of breath cough Neurologic denied any new focal deficits All inpatient medications were reviewed and appropriate changes in these medications as dictated in the interval history and assessment and plan. PHYSICAL EXAMINATION: GENERAL: The patient is alert and oriented x3, not in any acute distress. Well developed, well nourished. HEENT: Pupils are round and equally reacting to light. EOMI. No scleral icterus. No conjunctival pallor. Normocephalic, atraumatic. No pharyngeal erythema. No thyromegaly. NG tube in place left nare. CARDIOVASCULAR: S1 and S2 present. No murmurs, rubs, or gallops. PULMONARY: Chest is clear to auscultation, no wheezing or crackles. ABDOMEN: Soft, nontender, nondistended, normoactive bowel sounds. No palpable organomegaly. MUSCULOSKELETAL: No joint swelling or deformity. EXTREMITIES: No cyanosis, clubbing, or pedal edema. NEUROLOGICAL: Gross neurological examination did not reveal any focal deficits. SKIN: No rashes. Assessment and Plan Assessment Acute bowel obstruction with NG tube in place Leukocytosis, most likely reactive History of previous bowel obstruction with ileus History of bowel resection Gastroesophagus reflux disease History of anxiety GI prophylaxis DVT prophylaxis Full Code Plan Continue with NG tube Continue IV fluids Further orders regarding advancing diet per primary Continue all other supportive care Thank you kindly for this consultation The impression and plan of care has been dictated by Jenny Vargas, Nurse Practitioner as directed. Dr. Otis MD I have performed a history and physical examination and medical decision making of this patient, discussed the same with the dictator, and agree with the dictators assessment and plan as written, documented as a scribe. Based on total visit time, I have performed more than 50% of this visit. Objective - Vital Signs Vital signs: Vital Signs Temp 98.3 F 07/15/21 02:00 Pulse 82 07/15/21 02:00 Resp 16 07/15/21 02:00 BP 118/66 07/15/21 02:00 Pulse Ox 96 07/15/21 02:00 FiO2 Intake & Output 07/14/21 07/15/21 07/15/21 18:59 06:59 18:59 Intake Total 1300 300 Output Total 210 150 Balance 1090 150 Intake: Intake, IV Titration 1300 300 Amount ACETAMINOPHEN IV (For NPO 100 ) 1,000 mg In Empty Bag 1 bag @ 400 mls/hr IVPB Q6HR PRN Rx#:[id number] ACETAMINOPHEN IV (For NPO 200 ) 1,000 mg In Empty Bag 1 bag @ 400 mls/hr IVPB Q6HR PRN Rx#:[id number] D5-0.45% NaCl with KCl 1100 200 20Meq/l 1,000 ml @ 100 mls/hr IV .Q10H STORM Rx#: [id number] Output: Gastric Drainage 210 150 Other: Voiding Method Toilet # Voids 1 4 # Bowel Movements 0 - Labs CBC & Chem 7: 07/15/21 04:16 07/15/21 04:16 Labs: Abnormal Lab Results - Last 24 Hours (Table) 07/14/21 07/14/21 07/14/21 Range/Units 05:11 05:11 11:34 WBC 11.59 H (4.50-10.00) X 10*3/uL RBC 3.87 L (4.10-5.20) X 10*6/uL Immature Gran # 0.05 H (0.00-0.04) X 10*3/uL Neutrophils # 8.55 H (1.80-7.70) X 10*3/uL Monocytes # 1.07 H (0.20-1.00) X 10*3/uL Anion Gap 8.10 L (10.00-18.00) mmol/L BUN 4.9 L (9.0-27.0) mg/dL Creatinine (0.6-1.5) mg/dL BUN/Creatinine Ratio 8.17 L (12.00-20.00) Ratio POC Glucose (mg/dL) 115 H (75-99) mg/dL Total Protein 5.8 L (6.2-8.2) g/dL Albumin 3.7 L (3.8-4.9) g/dL 07/15/21 07/15/21 Range/Units 04:16 04:16 WBC 10.34 H (4.50-10.00) X 10*3/uL RBC 3.96 L (4.10-5.20) X 10*6/uL Immature Gran # (0.00-0.04) X 10*3/uL Neutrophils # (1.80-7.70) X 10*3/uL Monocytes # (0.20-1.00) X 10*3/uL Anion Gap (10.00-18.00) mmol/L BUN 4.9 L (9.0-27.0) mg/dL Creatinine 0.5 L (0.6-1.5) mg/dL BUN/Creatinine Ratio 9.21 L (12.00-20.00) Ratio POC Glucose (mg/dL) (75-99) mg/dL Total Protein (6.2-8.2) g/dL Albumin (3.8-4.9) g/dL Assessment and Plan Time with Patient: Less than 30
[2021-07-16] MEDS: D5-0.45% NACL WITH KCL 20MEQ/L 1,000 ML IV SCH ×2 (06:02→15:18)
[2021-07-16 07:54] VITALS: RESP 17
[2021-07-16] MEDS ORDERED: FAMOTIDINE 20 MG TAB PO SCH (09:00)
[2021-07-16] MEDS ORDERED: PARoxetine 20 MG TAB PO SCH (09:00)
[2021-07-16] MEDS: HEPARIN SODIUM,PORCINE/PF 5,000 UNIT/0.5 ML SYRINGE SQ SCH (09:13)
--- NOTE | 2021-07-16 12:14 | P.DS ---
Providers Date of admission: 07/13/21 15:26 Expected date of discharge: 07/16/21 Attending physician: Per Garcia Consults: 07/13/21 16:24 Consult Physician Routine Consulting Provider: Mallorie Santos Consult Reason/Comments: MEDICAL MANAGEMENT Do you want consulting provider notified?: Yes Primary care physician: Stated None Hospital Course: Discharge diagnosis 1. Small bowel obstruction Hospital course 80-year-old female transferred from [facility] because of small bowel obstruction. She apparently was there for a few days with nasogastric tube to suction. There was no improvement and therefore she was advised to be transferred by the surgical services there. Patient has had multiple bowel obstructions in the past. She has required laparotomy on at least 2 occasions. She has had several episodes that spontaneously improved with gastric decompression. Patient admitted to the hospital with small bowel obstruction. She was treated conservatively. She had NG tube placed. She had small bowel follow-through with the Gastrografin. Results showed normal small bowel transit. Findings just resolution of small bowel obstruction. Some residual mildly distended small bowel loops likely a product of recent obstruction. Patient has been having bowel movements and flatus. Her abdominal pain and abdominal distention have resolved. NG tube came out yesterday. Patient tolerated a full liquid diet. She is stable for discharge. Please refer to chart for any further details. Physician Pick Up note has been reviewed by physician. Signing provider agrees with the documented findings, assessment, and plan of care. I have personally seen and examined the patient, reviewed the TRAINING PROGRAM DEVELOPER /PAs history, exam and MDM and agree with the assessment and plan as written. Based on total visit time, I have performed more than 50% of the visit. As above: Patient doing well today. Tolerating low fiber diet. No pain. No nausea or vomiting. May discharge. Patient Condition at Discharge: Stable Plan - Discharge Summary Discharge Rx Participant: No New Discharge Prescriptions: Continue LORazepam [Ativan] 0.25 mg PO BID PRN PRN Reason: Anxiety PARoxetine [Paxil] 20 mg PO DAILY Multivit-Min/Iron/Folic/Lutein [Centrum Silver Women Tablet] 1 tab PO DAILY Immune Supplement 1 cap PO DAILY Clobetasol Propionate [Temovate 0.05% Cream] 1 applic TOPICAL DIRECTED PRN PRN Reason: Rash Sennosides/Docusate Sodium [Senna Plus 8.6-50 mg Softgel] 1 cap PO DAILY Famotidine [Pepcid] 20 mg PO BID Discharge Medication List LORazepam [Ativan] 0.25 mg PO BID PRN 04/21/17 [History] Clobetasol Propionate [Temovate 0.05% Cream] 1 applic TOPICAL DIRECTED PRN 07/13/21 [History] Famotidine [Pepcid] 20 mg PO BID 07/13/21 [History] Immune Supplement 1 cap PO DAILY 07/13/21 [History] Multivit-Min/Iron/Folic/Lutein [Centrum Silver Women Tablet] 1 tab PO DAILY 07/13/21 [History] PARoxetine [Paxil] 20 mg PO DAILY 07/13/21 [History] Sennosides/Docusate Sodium [Senna Plus 8.6-50 mg Softgel] 1 cap PO DAILY 07/13/21 [History] Follow up Appointment(s)/Referral(s): Lonnie Smith MD [REFERRING] - 1-2 Days ([phone] At [facility]) Activity/Diet/Wound Care/Special Instructions: Continue low fiber diet and advance as tolerated Discharge Disposition: HOME SELF-CARE
[2021-07-16 14:26] VITALS: BP 125/76; PULSE 97; TEMP 97.5
--- NOTE | 2021-07-16 14:37 | P.PN ---
Subjective Progress Note Date: 07/16/21 This is a 80 year old female who presents to the hospital with concern for bowel obstruction. Currently had NG tube in place this morning. Underwent small bowel follow through today showing normal small bowel transit time which suggest resolution of small bowel obstruction with residual mild distention. After barium study patient had multiple episodes of loose stool. Denies nausea, vomiting. Labs today showing white count 10.34, electrolytes within normal limit. Afebrile, blood pressure 120/63, 97% room air. 07/16/2021 Patient evaluated today resting in bed. Bowels have slowed down, and she is able to control movements now. NG tube has been removed since yesterday evening. No nausea, vomiting and she is tolerating diet. Plan is for discharge after lunch if she tolerates full liquid diet. White count today 10.34, sodium 139, potassium 4.2. Blood glucose in the 100s. She is afebrile, heart rate 97, blood pressure 125/76, 97% room air. Medically she is stable for discharge. Review of Systems Constitutional: Denied any fatigue denied any fever. Cardio vascular: denied any chest pain, palpitations Gastrointestinal: denied any nausea, vomiting, diarrhea, reports loose stool, passing gas Pulmonary: Denied any shortness of breath cough Neurologic denied any new focal deficits All inpatient medications were reviewed and appropriate changes in these medications as dictated in the interval history and assessment and plan. PHYSICAL EXAMINATION: GENERAL: The patient is alert and oriented x3, not in any acute distress. Well developed, well nourished. HEENT: Pupils are round and equally reacting to light. EOMI. No scleral icterus. No conjunctival pallor. Normocephalic, atraumatic. No pharyngeal erythema. No thyromegaly. NG tube removed. CARDIOVASCULAR: S1 and S2 present. No murmurs, rubs, or gallops. PULMONARY: Chest is clear to auscultation, no wheezing or crackles. ABDOMEN: Soft, nontender, nondistended, normoactive bowel sounds. No palpable organomegaly. MUSCULOSKELETAL: No joint swelling or deformity. EXTREMITIES: No cyanosis, clubbing, or pedal edema. NEUROLOGICAL: Gross neurological examination did not reveal any focal deficits. SKIN: No rashes. Assessment and Plan Assessment Acute bowel obstruction resolved Leukocytosis, most likely reactive, improving History of previous bowel obstruction with ileus History of bowel resection Gastroesophagus reflux disease History of anxiety GI prophylaxis DVT prophylaxis Full Code Plan Patient is cleared medically for discharge Continue low fiber diet as recommended by primary Follow up with PCP in 1-2 days Continue all home medications Continue daily stool softener Thank you kindly for this consultation The impression and plan of care has been dictated by Jenny Vargas, Nurse Practitioner as directed. Dr. Otis MD I have performed a history and physical examination and medical decision making of this patient, discussed the same with the dictator, and agree with the dictators assessment and plan as written, documented as a scribe. Based on total visit time, I have performed more than 50% of this visit. Objective - Vital Signs Vital signs: Vital Signs Temp 98.0 F 07/16/21 07:53 Pulse 68 07/16/21 07:53 Resp 17 07/16/21 07:53 BP 118/65 07/16/21 07:53 Pulse Ox 98 07/16/21 07:53 FiO2 Intake & Output 07/15/21 07/16/21 07/16/21 18:59 06:59 18:59 Intake Total 300 1200 240 Output Total 150 Balance 150 1200 240 Intake: Intake, IV Titration 300 1200 Amount ACETAMINOPHEN IV (For NPO 100 ) 1,000 mg In Empty Bag 1 bag @ 400 mls/hr IVPB Q6HR PRN Rx#:[id number] D5-0.45% NaCl with KCl 200 1200 20Meq/l 1,000 ml @ 100 mls/hr IV .Q10H STORM Rx#: [id number] Oral 240 Output: Gastric Drainage 150 Other: Voiding Method Toilet # Voids 20 # Bowel Movements 20 - Labs CBC & Chem 7: 07/15/21 04:16 07/15/21 04:16 Assessment and Plan Time with Patient: Less than 30
== END 2021-07-16 15:04 | disposition home or self-care (01) | DRG 390 ==
LOC: 4SSUR 15:26
PROVIDERS: ADMIT Surgery; ATTEND Surgery
DX: K56.50 Intestinal adhesions [bands], unspecified as to partial versus complete obstruction (principal); F41.9 Anxiety disorder, unspecified; K21.9 Gastro-esophageal reflux disease without esophagitis; M19.90 Unspecified osteoarthritis, unspecified site; Z90.710 Acquired absence of both cervix and uterus; Z90.49 Acquired absence of other specified parts of digestive tract; Z87.891 Personal history of nicotine dependence; Z79.899 Other long term (current) drug therapy; Z87.19 Personal history of other diseases of the digestive system; Z80.0 Family history of malignant neoplasm of digestive organs; Z82.49 Family history of ischemic heart disease and other diseases of the circulatory system
CPT/HCPCS: 71045; 74250; 80048; 80053; 85025